=== PATIENT | male | born 1955 | race Caucasian/White ===

== ENCOUNTER 2018-06-12 20:57 | Emergency (ER) | payer MEDICARE, OTHER | END 2018-06-12 22:44 | LOC: EDH 20:57 | DX: R13.10 Dysphagia, unspecified (principal); R05 Cough; I10 Essential (primary) hypertension; F31.9 Bipolar disorder, unspecified; Z88.0 Allergy status to penicillin; Z88.7 Allergy status to serum and vaccine; Z79.899 Other long term (current) drug therapy; Z72.0 Tobacco use | CPT/HCPCS: 71045 ==

== ENCOUNTER 2018-06-30 10:34 | Emergency (ER) | payer OTHER | END 2018-06-30 11:40 | disposition left against medical advice (07) | LOC: EDH 10:34 | DX: S99.821A Other specified injuries of right foot, initial encounter (principal); F31.9 Bipolar disorder, unspecified; I10 Essential (primary) hypertension; Z88.0 Allergy status to penicillin; Z88.7 Allergy status to serum and vaccine; X58.XXXA Exposure to other specified factors, initial encounter; Y93.89 Activity, other specified; Y92.098 Other place in other non-institutional residence as the place of occurrence of the external cause; Y99.8 Other external cause status ==